=== PATIENT | female | born 1965 | race American Indian/Alaskan Native ===

== ENCOUNTER 2020-02-13 11:32 | Outpatient (CLI) | payer BC ==
--- NOTE | 2020-02-13 12:51 | XRay Report ---
CHEST 2 VIEWS INDICATION / CLINICAL INFORMATION: CHEST DISCOMFORT. COMPARISON: None available. FINDINGS: SUPPORT DEVICES: None. HEART / MEDIASTINUM: No significant abnormality. LUNGS / PLEURA: No significant pulmonary or pleural abnormality. No pneumothorax. ADDITIONAL FINDINGS: Mild to moderate spondylitic changes are noted throughout the thoracic spine. IMPRESSION: 1. No acute findings. No evidence of pneumonia. Signer Name: Promise Hernandez MD Signed: 02/13/2020 12:47 PM Workstation Name: [id number]
== END 2020-02-13 11:33 | disposition home or self-care (01) ==
LOC: SPVIMAG 11:32
PROVIDERS: ATTEND Internal Medicine
DX: R07.89 Other chest pain (principal); M47.814 Spondylosis without myelopathy or radiculopathy, thoracic region
CPT/HCPCS: 71046